=== PATIENT | female | born 1990 | race Caucasian/White ===

== ENCOUNTER 2018-02-05 14:18 | Emergency (ER) | payer OTHER ==
[2018-02-05] MEDS: DOXYCYCLINE 100 MG TAB PO (17:45)
[2018-02-05] MEDS: ACETAMINOPHEN 500 MG TAB PO (17:46)
== END 2018-02-05 18:48 | disposition home or self-care (01) ==
LOC: FTE 14:18
DX: J18.9 Pneumonia, unspecified organism (principal); F17.210 Nicotine dependence, cigarettes, uncomplicated; R07.9 Chest pain, unspecified
CPT/HCPCS: 71045; 93005; 99284-25

== ENCOUNTER 2018-04-19 19:53 | Emergency (ER) | payer OTHER ==
[2018-04-19] MEDS: ACETAMINOPHEN 325 MG TAB PO (21:46)
[2018-04-19 21:53] LABS: ADD MAN DIFF? NO
[2018-04-19 21:54] LABS: WHITE BLOOD COUNT 13.2 10^3/ul (4.8-10.8)
[2018-04-19 21:55] LABS: BASOPHIL # 0.1 10^3/ul (0.0-0.1); BASOPHILS % 0.5 % (0.0-2.0); EOSINOPHILS # 0.3 10^3/ul (0.0-0.5); EOSINOPHILS % 2.4 % (0.0-7.0); HEMATOCRIT 36.8 % (37.0-47.0); HEMOGLOBIN 12.5 g/dl (12.0-16.0); LYMPHOCYTES % 22.8 % (15.0-51.0); MEAN CORPUSCULAR HEMOGLOBIN 28.5 pg (29.0-33.0); MEAN CORPUSCULAR VOLUME 83.8 fl (82.0-101.0); MEAN PLATELET VOLUME 9.7 fl (7.4-10.4); MONOCYTES % 7.7 % (0.0-11.0); NEUTROPHIL # 8.6 10^3/ul (1.6-7.5); PLATELET COUNT 314 10^3/UL (140-415); RED BLOOD COUNT 4.39 10^6/ul (4.20-5.40); RED CELL DISTRIBUTION WIDTH 13.8 % (11.5-14.5)
[2018-04-19 21:57] LABS: ADD UMIC YES; UR ASCORBIC ACID NEGATIVE (NEGATIVE); UR BACTERIA FEW /HPF (NONE SEEN); UR BILIRUBIN (Dip) NEGATIVE (NEGATIVE); UR BLOOD (Dip) 2+ mg/dL (NEGATIVE); UR CLARITY SLIGHTLY CLOUDY (CLEAR); UR COLOR YELLOW (YELLOW); UR GLUCOSE (Dip) NEGATIVE (NEGATIVE); UR KETONES (Dip) NEGATIVE (NEGATIVE); UR LEUKOCYTE ESTERASE (Dip) TRACE Leu/ul (NEGATIVE); UR NITRITE (Dip) NEGATIVE (NEGATIVE); UR RBC 1 /HPF (0-5); UR SPECIFIC GRAVITY (Dip) 1.026 (1.003-1.030); UR SQUAMOUS EPITHELIAL CELL FEW /HPF (FEW); UR TOTAL PROTEIN (Dip) NEGATIVE (NEGATIVE); UR UROBILINOGEN (Dip) NEGATIVE (NEGATIVE); UR WBC 3 /HPF (0-5)
[2018-04-19 22:11] LABS: ALANINE AMINOTRANSFERASE 37 IU/L (13-69); ALBUMIN 3.8 g/dl (3.3-4.9); ALBUMIN/GLOBULIN RATIO 1.22; ALKALINE PHOSPHATASE 111 IU/L (42-121); ANION GAP 10 (5-13); ASPARTATE AMINO TRANSFERASE 20 IU/L (15-46); BILIRUBIN,INDIRECT 0.3 mg/dl (0-1.1); BILIRUBIN,TOTAL 0.3 mg/dl (0.2-1.3); BLOOD UREA NITROGEN 16 mg/dl (7-20); CALCIUM 9.3 mg/dl (8.4-10.2); CARBON DIOXIDE 24 mmol/L (21-31); CHLORIDE 104 mmol/L (97-110); CREATININE 0.62 mg/dl (0.44-1.00); Estimated GFR > 60 mL/min (>60); GLUCOSE 81 mg/dl (70-220); POTASSIUM 3.7 mmol/L (3.5-5.1); SODIUM 138 mmol/L (135-144); TOTAL PROTEIN 6.9 g/dl (6.1-8.1)
[2018-04-19 22:14] LABS: INR 0.91; PROTIME 12.3 Sec (11.9-14.9)
[2018-04-19 22:15] LABS: PARTIAL THROMBOPLASTIN TIME 25.5 Sec (23.0-35.0)
== END 2018-04-19 23:12 | disposition home or self-care (01) ==
LOC: FTE 19:53
DX: O20.0 Threatened abortion (principal); R10.2 Pelvic and perineal pain; Z3A.09 9 weeks gestation of pregnancy
CPT/HCPCS: 36415; 76801; 80053; 81001; 81025; 84702; 85025; 85610; 85730; 86900; 86901; 87086; 99284-25

== ENCOUNTER 2018-04-25 11:08 | Emergency (ER) | payer SELFPAY, OTHER | END 2018-04-25 11:38 | disposition left against medical advice (07) | LOC: FTE 11:08 | DX: Z53.21 Procedure and treatment not carried out due to patient leaving prior to being seen by health care provider (principal) ==

== ENCOUNTER 2018-04-25 11:38 | Emergency (ER) | payer OTHER | END 2018-04-25 15:13 | disposition home or self-care (01) | LOC: FTE 15:13 | DX: Z34.91 Encounter for supervision of normal pregnancy, unspecified, first trimester (principal); Z3A.10 10 weeks gestation of pregnancy; Z87.891 Personal history of nicotine dependence | CPT/HCPCS: 99282 ==

== ENCOUNTER 2018-06-02 16:31 | Emergency (ER) | payer OTHER ==
[2018-06-02] MEDS: ACETAMINOPHEN 500 MG TAB PO (18:43)
[2018-06-02] MEDS: OXYMETAZOLINE 0.05% 15 ML NAS SPRAY NASAL (18:49)
== END 2018-06-02 19:51 | disposition home or self-care (01) ==
LOC: FTE 16:31
DX: O99.355 Diseases of the nervous system complicating the puerperium (principal); O99.512 Diseases of the respiratory system complicating pregnancy, second trimester; Z3A.15 15 weeks gestation of pregnancy
CPT/HCPCS: 87400; 99283

== ENCOUNTER 2018-07-14 14:33 | Outpatient (CLI) | payer OTHER ==
[2018-07-14 15:44] LABS: ADD UMIC NO; UR ASCORBIC ACID NEGATIVE (NEGATIVE); UR BILIRUBIN (Dip) NEGATIVE (NEGATIVE); UR BLOOD (Dip) NEGATIVE (NEGATIVE); UR CLARITY CLEAR (CLEAR); UR COLOR YELLOW (YELLOW); UR GLUCOSE (Dip) NEGATIVE (NEGATIVE); UR KETONES (Dip) 1+ mg/dL (NEGATIVE); UR LEUKOCYTE ESTERASE (Dip) NEGATIVE Leu/ul (NEGATIVE); UR NITRITE (Dip) NEGATIVE (NEGATIVE); UR TOTAL PROTEIN (Dip) NEGATIVE (NEGATIVE); UR UROBILINOGEN (Dip) NEGATIVE (NEGATIVE)
== END 2018-07-14 16:40 | disposition home or self-care (01) ==
LOC: OBT 14:33 → L-D 14:33 → OBT 16:40
DX: O26.892 Other specified pregnancy related conditions, second trimester (principal); R51 Headache; Z3A.21 21 weeks gestation of pregnancy
CPT/HCPCS: 76817; 81003; 87086

== ENCOUNTER 2018-07-14 16:47 | Emergency (ER) | payer SELFPAY, OTHER | END 2018-07-14 18:46 | disposition left against medical advice (07) | LOC: FTE 16:47 | DX: Z53.21 Procedure and treatment not carried out due to patient leaving prior to being seen by health care provider (principal) ==

== ENCOUNTER 2018-08-27 20:11 | Outpatient (CLI) | payer OTHER ==
[2018-08-27] MEDS: TERBUTALINE 1 MG/ML INJ SC ×2 (21:26→22:55)
[2018-08-27] MEDS: LACTATED RINGER'S 1,000 ML IV (21:42)
[2018-08-27 21:54] LABS: ADD MAN DIFF? NO
[2018-08-27 21:57] LABS: WHITE BLOOD COUNT 11.3 10^3/ul (4.8-10.8)
[2018-08-27 21:57] LABS: BASOPHIL # 0.1 10^3/ul (0.0-0.1); BASOPHILS % 0.5 % (0.0-2.0); EOSINOPHILS # 0.2 10^3/ul (0.0-0.5); HEMATOCRIT 35.2 % (37.0-47.0); HEMOGLOBIN 11.8 g/dl (12.0-16.0); LYMPHOCYTES # 2.1 10^3/ul (0.8-2.9); LYMPHOCYTES % 18.8 % (15.0-51.0); MEAN CORPUSCULAR HGB CONC 33.5 g/dl (32.0-37.0); MEAN CORPUSCULAR VOLUME 86.5 fl (82.0-101.0); MEAN PLATELET VOLUME 10.3 fl (7.4-10.4); MONOCYTE # 1.3 10^3/ul (0.3-0.9); MONOCYTES % 11.5 % (0.0-11.0); NEUTROPHIL # 7.3 10^3/ul (1.6-7.5); NEUTROPHILS % 64.9 % (39.0-77.0); PLATELET COUNT 228 10^3/UL (140-415); RED BLOOD COUNT 4.07 10^6/ul (4.20-5.40); RED CELL DISTRIBUTION WIDTH 13.2 % (11.5-14.5)
[2018-08-27 22:08] LABS: ADD UMIC YES; UR ASCORBIC ACID 40 mg/dL (NEGATIVE); UR BACTERIA FEW /HPF (NONE SEEN); UR BILIRUBIN (Dip) NEGATIVE (NEGATIVE); UR BLOOD (Dip) NEGATIVE (NEGATIVE); UR CLARITY SLIGHTLY CLOUDY (CLEAR); UR COLOR YELLOW (YELLOW); UR GLUCOSE (Dip) 1+ mg/dL (NEGATIVE); UR KETONES (Dip) 1+ mg/dL (NEGATIVE); UR LEUKOCYTE ESTERASE (Dip) TRACE Leu/ul (NEGATIVE); UR MUCUS FEW /HPF (NONE SEEN); UR NITRITE (Dip) NEGATIVE (NEGATIVE); UR RBC 2 /HPF (0-5); UR SPECIFIC GRAVITY (Dip) 1.018 (1.003-1.030); UR SQUAMOUS EPITHELIAL CELL FEW /HPF (FEW); UR TOTAL PROTEIN (Dip) NEGATIVE (NEGATIVE); UR UROBILINOGEN (Dip) NEGATIVE (NEGATIVE); UR WBC 6 /HPF (0-5)
[2018-08-27 22:17] LABS: ALANINE AMINOTRANSFERASE 21 IU/L (13-69); ALBUMIN 3.5 g/dl (3.3-4.9); ALBUMIN/GLOBULIN RATIO 1.12; ALKALINE PHOSPHATASE 74 IU/L (42-121); ANION GAP 11 (5-13); ASPARTATE AMINO TRANSFERASE 17 IU/L (15-46); BILIRUBIN,INDIRECT 0.3 mg/dl (0-1.1); BILIRUBIN,TOTAL 0.3 mg/dl (0.2-1.3); BLOOD UREA NITROGEN 9 mg/dl (7-20); CALCIUM 9.4 mg/dl (8.4-10.2); CARBON DIOXIDE 22 mmol/L (21-31); CHLORIDE 105 mmol/L (97-110); CREATININE 0.57 mg/dl (0.44-1.00); Estimated GFR > 60 mL/min (>60); GLUCOSE 97 mg/dl (70-220); POTASSIUM 3.3 mmol/L (3.5-5.1); SODIUM 138 mmol/L (135-144); TOTAL PROTEIN 6.6 g/dl (6.1-8.1)
[2018-08-27] MEDS: LACTATED RINGER'S 1,000 ML IV* (22:54)
[2018-08-28] MEDS: NIFEdipine 10 MG CAP PO ×2 (00:09→06:34)
[2018-08-28] MEDS: BETAMET NA PHOS/AC(6 MG/ML) 2 ML INJ SYG IM (07:34)
== END 2018-08-28 07:37 | disposition home or self-care (01) ==
LOC: OBT 20:11 → L-D 20:12
DX: O47.02 False labor before 37 completed weeks of gestation, second trimester (principal); O40.2XX0 Polyhydramnios, second trimester, not applicable or unspecified; Z3A.27 27 weeks gestation of pregnancy
CPT/HCPCS: 36415; 76815; 76817; 80053; 81001; 85025; 87086; 96360; 96361; 96372

== ENCOUNTER 2018-08-29 13:44 | Outpatient (CLI) | payer OTHER ==
[2018-08-29] MEDS: BETAMET NA PHOS/AC(6 MG/ML) 2 ML INJ SYG IM (14:37)
== END 2018-08-29 16:19 | disposition home or self-care (01) ==
LOC: OBT 13:44 → L-D 13:44 → OBT 16:19
DX: O36.8920 Maternal care for other specified fetal problems, second trimester, not applicable or unspecified (principal); Z3A.27 27 weeks gestation of pregnancy
CPT/HCPCS: J0702

== ENCOUNTER 2018-10-12 21:11 | Inpatient (IN) | payer OTHER ==
[2018-10-12] MEDS: LACTATED RINGER'S 1,000 ML IV ×2 (23:25→23:42)
[2018-10-13 00:23] LABS: ADD UMIC YES; UR ASCORBIC ACID NEGATIVE (NEGATIVE); UR BACTERIA FEW /HPF (NONE SEEN); UR BILIRUBIN (Dip) NEGATIVE (NEGATIVE); UR BLOOD (Dip) 1+ mg/dL (NEGATIVE); UR CALCIUM OXALATE CRYSTAL FEW /HPF (NONE SEEN); UR CLARITY CLOUDY (CLEAR); UR COLOR YELLOW (YELLOW); UR GLUCOSE (Dip) NEGATIVE (NEGATIVE); UR KETONES (Dip) NEGATIVE (NEGATIVE); UR LEUKOCYTE ESTERASE (Dip) 3+ Leu/ul (NEGATIVE); UR NITRITE (Dip) NEGATIVE (NEGATIVE); UR RBC 5 /HPF (0-5); UR SQUAMOUS EPITHELIAL CELL MODERATE /HPF (FEW); UR TOTAL PROTEIN (Dip) NEGATIVE (NEGATIVE); UR UROBILINOGEN (Dip) 1+ mg/dL (NEGATIVE); UR WBC 21 /HPF (0-5)
[2018-10-13] MEDS: TERBUTALINE 1 MG/ML INJ SC ×2 (00:38→01:51)
[2018-10-13 00:41] LABS: ADD MAN DIFF? NO
[2018-10-13 00:43] LABS: WHITE BLOOD COUNT 9.3 10^3/ul (4.8-10.8)
[2018-10-13 00:43] LABS: BASOPHIL # 0.1 10^3/ul (0.0-0.1); BASOPHILS % 0.9 % (0.0-2.0); EOSINOPHILS # 0.3 10^3/ul (0.0-0.5); EOSINOPHILS % 3.3 % (0.0-7.0); HEMATOCRIT 35.6 % (37.0-47.0); HEMOGLOBIN 11.8 g/dl (12.0-16.0); LYMPHOCYTES # 2.6 10^3/ul (0.8-2.9); LYMPHOCYTES % 27.7 % (15.0-51.0); MEAN CORPUSCULAR HEMOGLOBIN 28.5 pg (29.0-33.0); MEAN CORPUSCULAR HGB CONC 33.1 g/dl (32.0-37.0); MEAN PLATELET VOLUME 11.1 fl (7.4-10.4); MONOCYTE # 1.2 10^3/ul (0.3-0.9); MONOCYTES % 13.2 % (0.0-11.0); NEUTROPHIL # 4.9 10^3/ul (1.6-7.5); NEUTROPHILS % 52.3 % (39.0-77.0); PLATELET COUNT 231 10^3/UL (140-415); RED BLOOD COUNT 4.14 10^6/ul (4.20-5.40); RED CELL DISTRIBUTION WIDTH 13.5 % (11.5-14.5)
[2018-10-13 01:00] LABS: ALANINE AMINOTRANSFERASE 19 IU/L (13-69); ALBUMIN 3.5 g/dl (3.3-4.9); ALBUMIN/GLOBULIN RATIO 1.16; ALKALINE PHOSPHATASE 113 IU/L (42-121); ANION GAP 7 (5-13); ASPARTATE AMINO TRANSFERASE 22 IU/L (15-46); BILIRUBIN,INDIRECT 0.4 mg/dl (0-1.1); BILIRUBIN,TOTAL 0.4 mg/dl (0.2-1.3); BLOOD UREA NITROGEN 8 mg/dl (7-20); CALCIUM 9.5 mg/dl (8.4-10.2); CARBON DIOXIDE 23 mmol/L (21-31); CHLORIDE 106 mmol/L (97-110); CREATININE 0.46 mg/dl (0.44-1.00); Estimated GFR > 60 mL/min (>60); GLUCOSE 84 mg/dl (70-220); POTASSIUM 3.7 mmol/L (3.5-5.1); SODIUM 136 mmol/L (135-144); TOTAL PROTEIN 6.5 g/dl (6.1-8.1)
[2018-10-13 01:03] LABS: INR 0.92; PROTIME 12.5 Sec (11.9-14.9)
[2018-10-13 01:04] LABS: PARTIAL THROMBOPLASTIN TIME 26.6 Sec (23.0-35.0)
[2018-10-13 01:10] LABS: AMPHETAMINE/METHAMPHETAMINE Negative (NEGATIVE); BARBITURATES Negative (NEGATIVE); BENZODIAZEPINES Negative (NEGATIVE); CANNABINOIDS Negative (NEGATIVE); COCAINE Negative (NEGATIVE); OPIATES Negative (NEGATIVE)
[2018-10-13 01:30] LABS: HEPATITIS B SURFACE ANTIGEN NEGATIVE (NEGATIVE)
[2018-10-13] MEDS: BETAMET NA PHOS/AC(6 MG/ML) 2 ML INJ SYG IM (02:31)
[2018-10-13] MEDS: SOD CHLORIDE 0.9% 1,000 ML IV ×4 (02:55→20:39)
[2018-10-13] MEDS: CEFTRIAXONE 1 GM/50 ML (PMX) 50 ML IVPB (02:56)
[2018-10-13] MEDS: PRENATAL VITAMIN PO (09:33)
[2018-10-13 14:55] LABS: RAPID PLASMA REAGIN NONREACTIVE (NR)
[2018-10-13] MEDS: ACETAMINOPHEN 325 MG TAB PO (17:33)
[2018-10-14] MEDS: BETAMET NA PHOS/AC(6 MG/ML) 2 ML INJ SYG IM (02:40)
[2018-10-14] MEDS: CEFTRIAXONE 1 GM/50 ML (PMX) 50 ML IVPB (02:51)
[2018-10-14] MEDS: SOD CHLORIDE 0.9% 1,000 ML IV ×3 (05:25→21:45)
[2018-10-14] MEDS: PRENATAL VITAMIN PO (09:36)
[2018-10-14] MEDS ORDERED: NIFEdipine 10 MG CAP (10:39)
[2018-10-14] MEDS: NIFEdipine 10 MG CAP PO ×3 (10:41→22:50)
[2018-10-15] MEDS: CEFTRIAXONE 1 GM/50 ML (PMX) 50 ML IVPB (02:49)
[2018-10-15] MEDS: NIFEdipine 10 MG CAP PO ×4 (05:23→17:49)
[2018-10-15] MEDS: SOD CHLORIDE 0.9% 1,000 ML IV ×3 (05:52→23:59)
[2018-10-15] MEDS: PRENATAL VITAMIN PO (09:48)
[2018-10-15] MEDS ORDERED: LACTATED RINGER'S 1,000 ML IV (20:44)
[2018-10-15] MEDS: MAGNESIUM SULFATE 4 GM/100 ML 100 ML IV (21:38)
[2018-10-15] MEDS: MAGNESIUM SULFATE 20 GM/500 ML 500 ML IV (22:09)
[2018-10-16] MEDS: SOD CHLORIDE 0.9% 1,000 ML IV
[2018-10-16] MEDS: CEFTRIAXONE 1 GM/50 ML (PMX) 50 ML IVPB (02:45)
[2018-10-16 07:33] LABS: MAGNESIUM 4.7 mg/dl (1.7-2.5)
[2018-10-16] MEDS: PRENATAL VITAMIN PO (09:08)
[2018-10-16] MEDS: CEPHALEXIN 500 MG CAP PO ×2 (09:17→20:55)
[2018-10-16] MEDS: NIFEdipine 10 MG CAP PO ×3 (14:37→23:34)
[2018-10-16] MEDS: LACTATED RINGER'S 1,000 ML IV ×2 (19:58)
[2018-10-17] MEDS: LACTATED RINGER'S 1,000 ML IV (01:30)
[2018-10-17] MEDS: NIFEdipine 10 MG CAP PO (06:00)
== END 2018-10-17 07:40 | disposition home or self-care (01) | DRG 832 ==
LOC: OBT 23:55 → L-D 10-14 18:40 → OBT 21:11 → L-D 23:55
DX: O60.03 Preterm labor without delivery, third trimester (principal); O40.3XX0 Polyhydramnios, third trimester, not applicable or unspecified; O23.43 Unspecified infection of urinary tract in pregnancy, third trimester; Z3A.34 34 weeks gestation of pregnancy
CPT/HCPCS: 76815; 76818; 76820; 80053; 80307; 81001; 83735; 85025; 85610; 85730; 86592; 86850; 86900; 86901; 87086; 87340; 96360

== ENCOUNTER 2018-11-21 18:36 | Inpatient (IN) | payer OTHER ==
[2018-11-21] MEDS: ACETAMINOPHEN 500 MG TAB PO (21:01)
[2018-11-21] MEDS: LACTATED RINGER'S 1,000 ML IV (21:38)
[2018-11-22] MEDS ORDERED: OXYTOCIN 30 UNITS/LR 500 ML IV
[2018-11-22] MEDS ORDERED: METHYLERGONOVINE 0.2 MG INJ IM
[2018-11-22] MEDS ORDERED: AMPICILLIN 2 GM/NS (PMX) 100 ML IV
[2018-11-22] MEDS ORDERED: CARBOPROST 250 MCG INJ IM
[2018-11-22] MEDS ORDERED: LIDOCAINE 1% (MPF) 30 ML INJ INJ
[2018-11-22] MEDS ORDERED: MISOPROSTOL 200 MCG TAB PR
[2018-11-22] MEDS ORDERED: BUTORPHANOL 2 MG INJ IV
[2018-11-22 00:08] LABS: ADD MAN DIFF? NO; BASOPHIL # 0.1 10^3/ul (0.0-0.1); BASOPHILS % 0.6 % (0.0-2.0); EOSINOPHILS # 0.2 10^3/ul (0.0-0.5); EOSINOPHILS % 2.4 % (0.0-7.0); HEMATOCRIT 35.7 % (37.0-47.0); LYMPHOCYTES # 2.1 10^3/ul (0.8-2.9); LYMPHOCYTES % 24.5 % (15.0-51.0); MEAN CORPUSCULAR HEMOGLOBIN 28.4 pg (29.0-33.0); MEAN CORPUSCULAR HGB CONC 33.6 g/dl (32.0-37.0); MEAN CORPUSCULAR VOLUME 84.6 fl (82.0-101.0); MEAN PLATELET VOLUME 10.9 fl (7.4-10.4); MONOCYTES % 11.6 % (0.0-11.0); NEUTROPHILS % 58.9 % (39.0-77.0); PLATELET COUNT 258 10^3/UL (140-415); RED BLOOD COUNT 4.22 10^6/ul (4.20-5.40); RED CELL DISTRIBUTION WIDTH 14.6 % (11.5-14.5)
[2018-11-22 00:08] LABS: WHITE BLOOD COUNT 8.5 10^3/ul (4.8-10.8)
[2018-11-22] MEDS: LACTATED RINGER'S 1,000 ML IV ×4 (00:09→23:11)
[2018-11-22 00:46] LABS: HEPATITIS B SURFACE ANTIGEN NEGATIVE (NEGATIVE)
[2018-11-22 00:57] LABS: INR 0.97; PARTIAL THROMBOPLASTIN TIME 25.2 Sec (23.0-35.0)
[2018-11-22] MEDS: MISOPROSTOL 50 MCG CAPSULE PO ×4 (03:09→18:42)
[2018-11-22] MEDS ORDERED: AMPICILLIN 1 GM/NS (PMX) 50 ML IV (04:00)
[2018-11-22 05:02] LABS: AMPHETAMINE/METHAMPHETAMINE Negative (NEGATIVE); BARBITURATES Negative (NEGATIVE); BENZODIAZEPINES Negative (NEGATIVE); CANNABINOIDS Negative (NEGATIVE); COCAINE Negative (NEGATIVE); OPIATES Negative (NEGATIVE)
[2018-11-22 20:13] LABS: RAPID PLASMA REAGIN NONREACTIVE (NR)
[2018-11-23] MEDS: MISOPROSTOL 50 MCG CAPSULE PO (01:14)
[2018-11-23] MEDS: LACTATED RINGER'S 1,000 ML IV ×2 (07:21→15:17)
[2018-11-23] MEDS: OXYTOCIN 30 UNITS/LR 500 ML IV (10:51)
[2018-11-24] MEDS: LACTATED RINGER'S 1,000 ML IV ×4 (00:25→15:47)
[2018-11-24] MEDS ORDERED: FENTAnyl 2MCG/ML-ROPIV 0.2% 100 ML (04:45)
[2018-11-24] MEDS ORDERED: EPHEDrine 25 MG/5 ML SYG IV (05:00)
[2018-11-24] MEDS ORDERED: ONDANSETRON 4 MG INJ IV (05:00)
[2018-11-24] MEDS ORDERED: DIPHENHYDRAMINE 50 MG INJ IV (05:00)
[2018-11-24] MEDS ORDERED: FENTAnyl 2MCG/ML-ROPIV 0.2% 100 ML BAG EPI (05:00)
[2018-11-24] MEDS ORDERED: NALOXONE (0.4 MG/ML) INJ IV (05:00)
[2018-11-24] MEDS: OXYTOCIN 30 UNITS/LR 500 ML IV ×3 (09:44→16:32)
[2018-11-24] MEDS: IBUPROFEN 600 MG TAB PO ×3 (10:18→17:48)
[2018-11-24] MEDS ORDERED: MISOPROSTOL 200 MCG TAB PR (10:30)
[2018-11-24] MEDS ORDERED: OXYTOCIN 30 UNITS/LR 500 ML IV (10:30)
[2018-11-24] MEDS ORDERED: CARBOPROST 250 MCG INJ IM (10:30)
[2018-11-24] MEDS ORDERED: NACL 0.9% 3 ML SYG IV (10:30)
[2018-11-24] MEDS ORDERED: METHYLERGONOVINE 0.2 MG INJ IM (10:30)
[2018-11-24] MEDS ORDERED: LANOLIN HPA 1 PKT TOP (10:30)
[2018-11-24] MEDS: SENNA/DOCUSATE NA (8.6MG/50MG) TAB PO (20:51)
[2018-11-25] MEDS: IBUPROFEN 600 MG TAB PO ×3 (05:58→11:54)
[2018-11-25 08:28] LABS: HEMATOCRIT 31.9 % (37.0-47.0); HEMOGLOBIN 10.7 g/dl (12.0-16.0)
[2018-11-25] MEDS: SENNA/DOCUSATE NA (8.6MG/50MG) TAB PO (09:19)
[2018-11-26] MEDS ORDERED: DIPHTH/TET/ACEL PERTUSS (ADULT) 0.5 ML VIAL IM* (09:00)
[2018-11-26] MEDS ORDERED: MEASLES,MUMPS,RUBELLA VACCINE INJ SC* (09:00)
== END 2018-11-25 17:20 | disposition home or self-care (01) | DRG 806 ==
LOC: OBT 18:36 → L-D 11-22 00:06 → PP1 11-24 11:40 → L-D 18:38 → OBT 23:35 → L-D 23:35
PROVIDERS: Obstetrics & Gynecology
PROC: 10E0XZZ Delivery of Products of Conception, External Approach (ICD-10-PCS; principal; 2018-11-24)
PROC: 3E033VJ Introduction of Other Hormone into Peripheral Vein, Percutaneous Approach (ICD-10-PCS; 2018-11-24)
DX: O69.81X0 Labor and delivery complicated by cord around neck, without compression, not applicable or unspecified (principal); D62 Acute posthemorrhagic anemia; Z37.0 Single live birth; O99.02 Anemia complicating childbirth; Z3A.39 39 weeks gestation of pregnancy
CPT/HCPCS: 76815; 76818; 80307; 85014; 85018; 85025; 85610; 85730; 86592; 86850; 86900; 86901; 87340; 96360; 99464

== ENCOUNTER 2019-01-08 19:46 | Emergency (ER) | payer OTHER ==
[2019-01-08] MEDS: IBUPROFEN 600 MG TAB PO (20:54)
== END 2019-01-08 21:31 | disposition home or self-care (01) ==
LOC: FTE 19:46
DX: M77.9 Enthesopathy, unspecified (principal)
CPT/HCPCS: 29125; 73110-LT; 99283-25